=== PATIENT | female | born 1965 | race African-American/Black ===

== ENCOUNTER 2017-09-24 09:51 | Observation (INO) | payer SELFPAY ==
[~2017-09-24] VITALS: Ht 167.6 cm; Wt 66.2 kg
[2017-09-24 10:22] LABS: HEMATOCRIT 37.6 % (36.0-46.0); HEMOGLOBIN 12.4 G/DL (11.9-15.5); MCH 28.7 PG (29.0-34.0); PLATELET COUNT 268 K/uL (156-360); RBC DIS.WIDTH-CV 12.7 % (11.8-14.6); RBC DIS.WIDTH-SD 40.4 % (39-53); RED BLOOD COUNT 4.32 M/uL (3.80-5.20); WHITE BLOOD COUNT 5.2 K/uL (4.1-10.2)
[2017-09-24 10:32] LABS: ALBUMIN 4.1 g/dL (3.2-4.8)
[2017-09-24 10:33] LABS: CHLORIDE 102 mEq/L (99-109); SODIUM 140 mEq/L (136-147)
[2017-09-24 10:35] LABS: GLUCOSE 96 mg/dL (70-99); TOTAL PROTEIN 7.5 g/dL (6.4-8.3)
[2017-09-24 10:37] LABS: TOTAL BILIRUBIN 0.6 mg/dL (0.0-1.0)
[2017-09-24 10:38] LABS: ALKALINE PHOSPHATASE 73 IU/L (3-129)
[2017-09-24 10:39] LABS: CREATININE 0.9 mg/dL (0.6-1.3)
[2017-09-24 10:40] LABS: AST (GOT) 18 IU/L (2-34); UREA NITROGEN (BUN) 16 mg/dL (9-23)
[2017-09-24 10:42] LABS: ALT (GPT) 11 IU/L (3-49)
[2017-09-24 10:47] LABS: QUANTITATIVE HCG < 4.0 MIU/ML
[2017-09-24 10:51] LABS: GFR ESTIMATE (CALCULATED) > 59 mL/min/
[2017-09-24 12:35] LABS: LIPASE 19 U/L (1.0-51.0)
[2017-09-24 13:57] LABS: APPEARANCE SL.HAZY ((CLEAR)); BILIRUBIN NEGATIVE; BLOOD NEGATIVE; COLOR YELLOW ((YELLOW)); GLUCOSE (STRIP) NEGATIVE; KETONES 80; LEUKOCYTES TRACE; NITRITE NEGATIVE; PROTEIN (STRIP) 30; SPECIFIC GRAVITY 1.033 (1.000-1.030); UROBILINOGEN 0.2 MG/DL (0.2-1.0)
[2017-09-24 14:02] LABS: BACTERIA 2+ /HPF; EPITHELIAL CELLS RARE /HPF; HYALINE CASTS 0-5 /LPF; MUCUS 4+ /LPF; RED BLOOD CELLS 0-5 /HPF (0-5); UCUL ADDED? YES; WHITE BLOOD CELLS 0-5 /HPF (0-5)
[2017-09-24] MEDS ORDERED: DAILY VALUE1 EACH PO (14:39)
[2017-09-24 20:11] LABS: BENZODIAZEPINES, URINE SCREEN Negative (200 ng/mL)
[2017-09-24 23:07] VITALS: BP 149/70
[2017-09-25 06:36] LABS: HEMATOCRIT 31.9 % (36.0-46.0); MCH 28.4 PG (29.0-34.0); MCHC 32.3 G/DL (30.0-36.0); MCV 87.9 FL (83-99); PLATELET COUNT 237 K/uL (156-360); RBC DIS.WIDTH-CV 13.2 % (11.8-14.6); RBC DIS.WIDTH-SD 42.3 % (39-53); RED BLOOD COUNT 3.63 M/uL (3.80-5.20); WHITE BLOOD COUNT 6.3 K/uL (4.1-10.2)
[2017-09-25 06:39] LABS: ALBUMIN 3.2 G/DL (3.2-4.8); ALKALINE PHOSPHATASE 46 IU/L (3-129); ALT (GPT) 8 IU/L (3-49); AST (GOT) 13 IU/L (2-34); CHLORIDE 108 MEQ/L (99-109); CREATININE 0.6 MG/DL (0.6-1.3); GFR ESTIMATE (CALCULATED) > 59 mL/min/; GLUCOSE 74 mg/dL (70-99); POTASSIUM 4.3 MEQ/L (3.7-5.4); SODIUM 141 MEQ/L (136-147); TOTAL BILIRUBIN 0.5 MG/DL (0.0-1.0); TOTAL PROTEIN 5.6 G/DL (6.4-8.3); UREA NITROGEN (BUN) 10 mg/dL (9-23)
[2017-09-25 06:41] LABS: HEMOGLOBIN 10.3 G/DL (11.9-15.5)
[2017-09-25 08:00] VITALS: BP 118/67
[2017-09-25 08:22] LABS: IRON 41 MCG/DL (35-150); TRANSFERRIN (TIBC) 175.1 mg/dL (215-380); TRANSFERRIN SATUR. 23 % (20-55)
[2017-09-25 08:40] LABS: FERRITIN 62 NG/ML (10-291)
[2017-09-25 09:40] LABS: FOLIC ACID (FOLATE) > 22.0 NG/ML (5.0-22.0)
[2017-09-25 11:03] VITALS: BP 135/67
[2017-09-25 11:26] VITALS: BP 125/66
[2017-09-25 15:49] VITALS: BP 139/77
[2017-09-25 19:00] VITALS: BP 126/77
[2017-09-25 23:31] VITALS: BP 145/79
[2017-09-26 04:38] VITALS: BP 132/74
[2017-09-26 07:03] LABS: AMYLASE 44 IU/L (1-118); TRIGLYCERIDES 61 MG/DL (Normal: <150)
[2017-09-26 07:22] VITALS: BP 117/67
[2017-09-26 23:39] VITALS: BP 123/70
[2017-09-27 07:00] LABS: HEMATOCRIT 29.7 % (36.0-46.0); HEMOGLOBIN 9.8 G/DL (11.9-15.5); MCH 28.7 PG (29.0-34.0); MCV 87.1 FL (83-99); PLATELET COUNT 221 K/uL (156-360); RBC DIS.WIDTH-CV 13.2 % (11.8-14.6); RBC DIS.WIDTH-SD 41.9 % (39-53); RED BLOOD COUNT 3.41 M/uL (3.80-5.20); WHITE BLOOD COUNT 4.6 K/uL (4.1-10.2)
[2017-09-27 07:57] VITALS: BP 112/67
[2017-09-27 11:54] VITALS: BP 124/70
[2017-09-27] MEDS ORDERED: PANTOPRAZOLE SO40 MG PO (12:06)
[2017-09-27] MEDS ORDERED: ZOFRAN4 MG PO (12:06)
[2017-09-27] MEDS ORDERED: PROTONIX40 MG PO (12:06)
== END 2017-09-27 12:55 | disposition home or self-care (01) ==
LOC: EME 09:51 → 5WEST 14:44 → EDOF 14:44 → ENRESERV 14:46 → 5WEST 20:42 → ENRESERV 09-25 22:17 → 2EAST 09-25 23:27
PROVIDERS: Hospitalist; Specialist
PROC: 0DB68ZX Excision of Stomach, Via Natural or Artificial Opening Endoscopic, Diagnostic (ICD-10-PCS; principal; 2017-09-26)
DX: K25.9 Gastric ulcer, unspecified as acute or chronic, without hemorrhage or perforation (principal); K29.70 Gastritis, unspecified, without bleeding; K44.9 Diaphragmatic hernia without obstruction or gangrene; Z86.19 Personal history of other infectious and parasitic diseases; D64.9 Anemia, unspecified; K76.0 Fatty (change of) liver, not elsewhere classified; D25.9 Leiomyoma of uterus, unspecified; K59.00 Constipation, unspecified
CPT/HCPCS: 74177; 76705; 80053; 80306 90; 81003; 82150; 82607; 82728; 82746; 82787 90; 83540; 83690; 84466; 84478; 84702; 85027; 87086; 88305; 88342 TC; 99281; 99285; C9113; G0378; J0780; J1644; J2405; J3010; J7030; J7042